=== PATIENT | male | born 1980 | race Caucasian/White ===

== ENCOUNTER 2020-04-22 10:18 | Emergency (ER) | payer SELFPAY ==
[2020-04-22] MEDS ORDERED: Sodium Chloride 0.9% 10 ML Syringe FLUSH PRN (10:26)
[2020-04-22] MEDS ORDERED: Sodium Chloride 0.9% 1,000 ML IV ONE (10:31)
[2020-04-22] MEDS ORDERED: Ondansetron 4 MG/2 ML SDV IVPUSH ONE (10:32)
--- NOTE | 2020-04-22 10:37 | EDM.PDOC ---
ED HPI GENERAL MEDICAL PROBLEM - General Chief Complaint: Abdominal Pain Stated Complaint: AMBULANCE Time Seen by Provider: 04/22/20 10:33 Source of Information: Reports: Patient History Limitations: Reports: No Limitations - History of Present Illness INITIAL COMMENTS - FREE TEXT/NARRATIVE: Presents with sudden onset severe RLQ abdominal pain radiating to groin and back associated with nausea, onset this morning. No prior h/o kidney stones. Prior surgical history includes appendectomy. Patient does admit to smoking methamphetamine, denies IVDA. Onset: Today Location: Reports: Abdomen Quality: Reports: Ache Severity: Severe - Related Data Allergies Allergy/AdvReac Type Severity Reaction Status Date / Time No Known Allergies Allergy Verified 04/22/20 10:33 Home Meds: Home Meds Acetaminophen/HYDROcodone [Cygnet 325-5 MG] 1 - 2 tab PO Q6H PRN #16 tab 04/22/20 [Rx] Cefuroxime Axetil [Ceftin] 500 mg PO BID #14 tablet 04/22/20 [Rx] Tamsulosin [Tamsulosin 24 Hr] 0.4 mg PO DAILY #10 cap.er 04/22/20 [Rx] ondansetron HCL [Zofran] 4 mg PO Q8H PRN #10 tablet 04/22/20 [Rx] Past Medical History Psychiatric History: Reports: Addiction - Past Surgical History GI Surgical History: Reports: Appendectomy Social & Family History - Tobacco Use Smoking Status *Q: Current Every Day Smoker Tobacco Use Within Last Twelve Months: Cigarettes - Alcohol Use Alcohol Use History: No - Recreational Drug Use Recreational Drug Use: Yes Recreational Drug Type: Reports: Amphetamines (Speed) ED ROS GENERAL - Review of Systems Review Of Systems: Comprehensive ROS is negative, except as noted in HPI. ED EXAM, GI/ABD - Physical Exam Exam: See Below Exam Limited By: No Limitations General Appearance: Alert, WD/WN, No Apparent Distress Ears: Normal External Exam Nose: Normal Inspection Throat/Mouth: No Airway Compromise Head: Atraumatic, Normocephalic Neck: Full Range of Motion Respiratory/Chest: No Respiratory Distress, Lungs Clear, Normal Breath Sounds Cardiovascular: Regular Rate, Rhythm, No Murmur GI/Abdominal Exam: Soft, No Distention, Tender (RLQ). No: Guarding, Rigid Back Exam: CVA Tenderness (R) Extremities: Normal Range of Motion Neurological: Alert, Normal Cognition, No Motor/Sensory Deficits Psychiatric: Normal Affect, Normal Mood Skin Exam: Warm, Dry, Intact Course - Vital Signs Last Recorded V/S: Last Vital Signs Temp 36.5 C 04/22/20 10:39 Pulse 81 04/22/20 10:39 Resp 18 04/22/20 10:39 BP 155/96 H 04/22/20 10:39 Pulse Ox - Orders/Labs/Meds Orders: Active Orders 24 hr Category Date Time Status CULTURE URINE [RM] Stat Lab 04/22/20 10:26 Received Sodium Chloride 0.9% [Saline Flush] Med 04/22/20 10:26 Active 10 ml FLUSH ASDIRECTED PRN Saline Lock Insert [OM.PC] Routine Oth 04/22/20 10:26 Ordered Medication Orders Sodium Chloride (Saline Flush) 10 ml FLUSH ASDIRECTED PRN PRN Reason: Keep Vein Open Last Admin: 04/22/20 10:58 Dose: 10 ml Documented by: DEANNE Labs: Laboratory Tests 04/22/20 04/22/20 04/22/20 Range/Units 10:26 10:33 10:55 WBC 8.9 (4.5-12.0) X10-3/uL RBC 5.05 (4.30-5.75) x10(6)uL Hgb 14.8 (13.5-17.8) g/dL Hct 45.7 (30.0-51.3) % MCV 90.5 (80-96) fL MCH 29.3 (27.7-33.6) pg MCHC 32.4 (32.2-35.4) g/dL RDW 13.5 (11.5-15.5) % Plt Count 227 (125-369) X10(3)uL MPV 8.1 (7.4-10.4) fL Neut % (Auto) 65.8 (46-82) % Lymph % (Auto) 21.1 (13-37) % Bosque % (Auto) 9.2 (4-12) % Eos % (Auto) 1 (1.0-5.0) % Baso % (Auto) 3 H (0-2) % Neut # (Auto) 5.9 (1.6-8.3) # Lymph # (Auto) 1.9 (0.6-5.0) # Bosque # (Auto) 0.8 (0.0-1.3) # Eos # (Auto) 0.1 (0.0-0.8) # Baso # (Auto) 0.2 (0.0-0.2) # Sodium (135-145) mmol/L Potassium (3.5-5.3) mmol/L Chloride (100-110) mmol/L Carbon Dioxide (21-32) mmol/L BUN (7-18) mg/dL Creatinine (0.70-1.30) mg/dL Est Cr Clr Drug Dosing Estimated GFR (MDRD) (>60) BUN/Creatinine Ratio (9-20) Glucose (80-116) mg/dL Calcium (8.6-10.2) mg/dL Total Bilirubin (0.1-1.3) mg/dL AST (5-25) IU/L ALT (12-36) U/L Alkaline Phosphatase (56-112) IU/L Total Protein (6.0-8.0) g/dL Albumin (3.5-5.2) g/dL Globulin g/dL Albumin/Globulin Ratio Lipase (73-393) U/L Urine Color Yellow (YELLOW) Urine Appearance Cloudy (CLEAR) Urine pH 8.0 H (5.0-6.5) Ur Specific Wiley 1.010 (1.010-1.025) Urine Protein Negative (NEGATIVE) mg/dL Urine Glucose (UA) Normal (NORMAL) mg/dL Urine Ketones Negative (NEGATIVE) mg/dL Urine Occult Blood Moderate H (NEGATIVE) Urine Nitrite Negative (NEGATIVE) Urine Bilirubin Negative (NEGATIVE) Urine Urobilinogen Normal (NEGATIVE) mg/dL Ur Leukocyte Esterase Negative (NEGATIVE) Urine RBC 10-20 H (0-5) Urine WBC 0-5 (0-5) Ur Squamous Epith Cells Few H (NS,R,O) Amorphous Sediment Many Urine Bacteria Many H (NS) Urine Opiates Screen Negative (NEGATIVE) Ur Oxycodone Screen Negative (NEGATIVE) Ur Propoxyphene Screen Negative (NEGATIVE) Ur Barbituates Screen Negative (NEGATIVE) Ur Tricyclics Screen Negative (NEGATIVE) Ur Phencyclidine Scrn Negative (NEGATIVE) Ur Amphetamine Screen Positive H (NEGATIVE) Urine MDMA Screen Negative (NEGATIVE) U Benzodiazepines Scrn Negative (NEGATIVE) U Cocaine Metab Screen Negative (NEGATIVE) U Marijuana (THC) Screen Negative (NEGATIVE) 04/22/20 04/22/20 Range/Units 10:55 10:55 WBC (4.5-12.0) X10-3/uL RBC (4.30-5.75) x10(6)uL Hgb (13.5-17.8) g/dL Hct (30.0-51.3) % MCV (80-96) fL MCH (27.7-33.6) pg MCHC (32.2-35.4) g/dL RDW (11.5-15.5) % Plt Count (125-369) X10(3)uL MPV (7.4-10.4) fL Neut % (Auto) (46-82) % Lymph % (Auto) (13-37) % Bosque % (Auto) (4-12) % Eos % (Auto) (1.0-5.0) % Baso % (Auto) (0-2) % Neut # (Auto) (1.6-8.3) # Lymph # (Auto) (0.6-5.0) # Bos[place] # (Auto) (0.0-1.3) # Eos # (Auto) (0.0-0.8) # Baso # (Auto) (0.0-0.2) # Sodium 135 (135-145) mmol/L Potassium 3.9 (3.5-5.3) mmol/L Chloride 101 (100-110) mmol/L Carbon Dioxide 26 (21-32) mmol/L BUN 11 (7-18) mg/dL Creatinine 1.4 H (0.70-1.30) mg/dL Est Cr Clr Drug Dosing TNP Estimated GFR (MDRD) 57 L (>60) BUN/Creatinine Ratio 7.9 L (9-20) Glucose 131 H (80-116) mg/dL Calcium 9.1 (8.6-10.2) mg/dL Total Bilirubin 0.5 (0.1-1.3) mg/dL AST 23 (5-25) IU/L ALT 29 (12-36) U/L Alkaline Phosphatase 64 (56-112) IU/L Total Protein 6.9 (6.0-8.0) g/dL Albumin 3.9 (3.5-5.2) g/dL Globulin 3.0 g/dL Albumin/Globulin Ratio 1.3 Lipase 78 (73-393) U/L Urine Color (YELLOW) Urine Appearance (CLEAR) Urine pH (5.0-6.5) Ur Specific Wiley (1.010-1.025) Urine Protein (NEGATIVE) mg/dL Urine Glucose (UA) (NORMAL) mg/dL Urine Ketones (NEGATIVE) mg/dL Urine Occult Blood (NEGATIVE) Urine Nitrite (NEGATIVE) Urine Bilirubin (NEGATIVE) Urine Urobilinogen (NEGATIVE) mg/dL Ur Leukocyte Esterase (NEGATIVE) Urine RBC (0-5) Urine WBC (0-5) Ur Squamous Epith Cells (NS,R,O) Amorphous Sediment Urine Bacteria (NS) Urine Opiates Screen (NEGATIVE) Ur Oxycodone Screen (NEGATIVE) Ur Propoxyphene Screen (NEGATIVE) Ur Barbituates Screen (NEGATIVE) Ur Tricyclics Screen (NEGATIVE) Ur Phencyclidine Scrn (NEGATIVE) Ur Amphetamine Screen (NEGATIVE) Urine MDMA Screen (NEGATIVE) U Benzodiazepines Scrn (NEGATIVE) U Cocaine Metab Screen (NEGATIVE) U Marijuana (THC) Screen (NEGATIVE) Meds: Medications Generic Name Dose Route Start Last Admin Trade Name Freq PRN Reason Stop Dose Admin Sodium Chloride 10 ml 04/22/20 10:26 04/22/20 10:58 Saline Flush FLUSH 10 ml ASDIRECTED PRN Administration Keep Vein Open Discontinued Medications Generic Name Dose Route Start Last Admin Trade Name Freq PRN Reason Stop Dose Admin Ceftriaxone Sodium 1 gm 04/22/20 11:30 04/22/20 12:10 Rocephin IVPUSH 04/22/20 11:31 1 gm ONETIME ONE Administration Hydromorphone HCl 0.5 mg 04/22/20 10:49 04/22/20 10:52 Dilaudid IVPUSH 04/22/20 10:50 0.5 mg ONETIME ONE Administration Sodium Chloride 1,000 mls @ 999 mls/hr 04/22/20 10:31 04/22/20 10:58 Normal Saline IV 04/22/20 11:31 999 mls/hr .BOLUS ONE Administration Ketorolac Tromethamine 30 mg 04/22/20 11:28 04/22/20 12:10 Toradol IVPUSH 04/22/20 11:29 30 mg ONETIME ONE Administration Ondansetron HCl 4 mg 04/22/20 10:32 04/22/20 10:57 Zofran IVPUSH 04/22/20 10:33 4 mg ONETIME ONE Administration Tamsulosin HCl 0.4 mg 04/22/20 11:28 04/22/20 12:10 Flomax PO 04/22/20 11:29 0.4 mg ONETIME ONE Administration - Radiology Interpretation Free Text/Narrative:: CT Abd/Pelvis w/o contrast: 2 mm right distal ureteral calculus with right sided hydronephrosis, thickened urinary bladder, fluid filled small bowel, no signs of obstruction or perforation. (per Dr. Seals) - Re-Assessments/Exams Free Text/Narrative Re-Assessment/Exam: 04/22/20 12:32 Symptoms improved. Departure - Departure Time of Disposition: 12:32 Disposition: Home, Self-Care 01 Condition: Good Clinical Impression: Ureterolithiasis, Methamphetamine abuse - Discharge Information *PRESCRIPTION DRUG MONITORING PROGRAM REVIEWED*: Yes *COPY OF PRESCRIPTION DRUG MONITORING REPORT IN PATIENT MAKAYLA: Not Applicable Prescriptions: Cefuroxime Axetil [Ceftin] 500 mg PO BID #14 tablet Tamsulosin [Tamsulosin 24 Hr] 0.4 mg PO DAILY #10 cap.er Acetaminophen/HYDROcodone [Cygnet 325-5 MG] 1 - 2 tab PO Q6H PRN #16 tab PRN Reason: Pain ondansetron HCL [Zofran] 4 mg PO Q8H PRN #10 tablet PRN Reason: Nausea/Vomiting Instructions: Kidney Stones, [id number], Stimulant Use Disorder-Amphetamines Referrals: PCP,Not In Area [Primary Care Provider] - Forms: ED Department Discharge Additional Instructions: Fill the prescriptions for Cygnet, Zofran, Ceftin, and Flomax at [facility]. Drink plenty of fluids. Discontinue Methamphetamine use. Follow up with your primary physician in 2 days. Return to the ER if symptoms worsen. Sepsis Event Note (ED) - Focused Exam Vital Signs: Vital Signs Temp Pulse Resp BP 04/22/20 10:39 36.5 C 81 18 155/96 H - My Orders Last 24 Hours: My Active Orders 04/22/20 10:26 CULTURE URINE [RM] Stat Sodium Chloride 0.9% [Saline Flush] 10 ml FLUSH ASDIRECTED PRN Saline Lock Insert [OM.PC] Routine - Assessment/Plan Last 24 Hours: My Active Orders 04/22/20 10:26 CULTURE URINE [RM] Stat Sodium Chloride 0.9% [Saline Flush] 10 ml FLUSH ASDIRECTED PRN Saline Lock Insert [OM.PC] Routine
[2020-04-22] MEDS ORDERED: HYDROmorphone 2 MG/ML SDV IVPUSH ONE (10:49)
[2020-04-22] MEDS ORDERED: Ketorolac 30 MG/ML SDV IVPUSH ONE (11:28)
[2020-04-22] MEDS ORDERED: Tamsulosin 0.4 MG Cap.ER PO ONE (11:28)
[2020-04-22] MEDS ORDERED: cefTRIAXone 1 GM Vial IVPUSH ONE (11:30)
--- NOTE | 2020-04-22 12:02 | CT ---
INDICATION: Right flank pain. CT ABDOMEN AND PELVIS WITHOUT CONTRAST: Spiral 2.5 mm axial sections were obtained through the abdomen and pelvis without contrast - urinary calculus protocol. Total exam DLP was 353.23 mGy-cm. Sagittal and coronal reconstructions were obtained 04/22/20 - no comparison. The lower lung emerson and pleural spaces visualized appeared normal. Low density lesion in the right lobe of the liver at the diaphragm could represent hemangioma or possibly a cyst. No other definite liver abnormality was identified. No gallstones were demonstrated. The adrenal glands were unremarkable. The spleen and pancreas appear grossly normal. No evidence of renal calcinosis. The pyelocaliceal system on the right, although the kidneys were otherwise normal in appearance, is somewhat prominent in addition to the proximal to mid right ureter. The more distal ureter is not well seen. However, on axial image 148 and coronal image 62, there is what appears to be a tiny calcification associated with the area of the distal ureter compatible with obstructive uropathy. The degree of obstructive uropathy would appear to be relatively mild. The urinary bladder wall appears to be markedly thickened which may be on the basis of cystitis and should be correlated clinically. Multiple fluid-filled loops of small bowel are noted with a few loops having a somewhat thickened wall appearance in the mid abdomen area - jejunal or proximal ileal loops. A process such as Crohn's disease would be a consideration. Clips are noted in the area of the appendix compatible with its absence - appendectomy history. No evidence of free air or definite bowel obstruction was seen. No definite retroperitoneal mass was seen. IMPRESSION: 1. Multiple loops of small bowel extending into the area of the ileum are noted with some thickened wall of more proximal small bowel loops - distal jejunum- proximal ileum, Possibly a process such as Crohn's disease would be a consideration or possibly gastroenteritis and should be correlated clinically. A definite bowel obstructive process of mechanical nature is not identified. However, followup studies may be warranted depending upon clinical correlation. 2. Post-appendectomy. 3. No visualized evidence of renal calcinosis. However, on axial image 148 and coronal image 62, there is a tiny calcification which may represent a calcification in the distal right ureter raising a question of obstructive uropathy of a mild degree at the right kidney. Mild pyelocaliectasis and proximal ureterectasis was visualized. The more distal ureter was not well seen and therefore a mild degree of obstructive uropathy is suggested on the right. 4. Thickening of the urinary bladder wall suggesting the possibility of cystitis - correlate clinically. 5. Mild dextroconcave scoliosis of the lumbar spine is noted which could be reactive to pain but should be correlated clinically. Report was called to Dr. Hill at 1136 hours. [facility]
== END 2020-04-22 13:20 | disposition home or self-care (01) ==
LOC: FB.ED 10:18
DX: N20.1 Calculus of ureter (principal); F15.10 Other stimulant abuse, uncomplicated; F17.210 Nicotine dependence, cigarettes, uncomplicated
CPT/HCPCS: 36415; 74176; 80053; 80305-QW; 81001; 83690; 85025; 87086; 96374; 96375; 99285-25; A9270-GY; J0696; J1170; J1885; J2405; J7030